=== PATIENT | female | born 1980 | race Caucasian/White ===

== ENCOUNTER → 2017-01-12 | Outpatient (CLI) | payer OTHER ==
[~2017-01-12] MED LIST: PRENTAB26 PO
== END | disposition home or self-care (01) ==
LOC: C.LAB 06:47
PROVIDERS: ATTEND Obstetrics & Gynecology
DX: N97.0 Female infertility associated with anovulation (principal); E55.9 Vitamin D deficiency, unspecified

== ENCOUNTER → 2017-06-18 | Outpatient (CLI) | payer OTHER | END | disposition home or self-care (01) | LOC: C.LAB 06:38 | PROVIDERS: ATTEND Specialist | DX: O09.00 Supervision of pregnancy with history of infertility, unspecified trimester (principal); Z3A.00 Weeks of gestation of pregnancy not specified ==

== ENCOUNTER → 2017-07-24 | Outpatient (CLI) | payer OTHER | END | disposition home or self-care (01) | LOC: C.LAB 09:31 | PROVIDERS: ATTEND Specialist | DX: O09.00 Supervision of pregnancy with history of infertility, unspecified trimester (principal); Z3A.00 Weeks of gestation of pregnancy not specified ==

== ENCOUNTER → 2017-07-26 | Outpatient (CLI) | payer OTHER ==
--- NOTE | 2017-07-26 15:23 | DIAGNOSTIC IMAGING REPORT ---
TRANSVAG-FEMALE PELVIS HISTORY: Infertility INFERTILIY STAT COMPARISON: Hysterosalpingogram 07/04/2016 FINDINGS: Uterus: 6.8 cm maximum dimension Endometrial stripe: 3 mm Right ovary: 3.0 cm maximum dimension with normal vascular flow. 5 small follicular cysts identified with the largest measuring 1.1 cm. Left ovary: 2.7 cm maximum dimension with normal vascular flow. 7 follicular cysts identified with the largest measuring 1.6 cm Miscellaneous:Trace physiologic free fluid IMPRESSION: 1. Bilateral ovarian follicular cysts as described. 2. Normal vascular flow to both ovaries. 3. Study is otherwise normal. The above report was generated using voice recognition software. It may contain grammatical, syntax or spelling errors. Electronically signed by: Nitin Suazo M.D. 07/26/2017 3:22 PM Dictated Date/Time: 07/26/2017 3:19 PM
== END | disposition home or self-care (01) ==
LOC: C.ULTR 13:48
PROVIDERS: ATTEND Specialist
DX: N97.9 Female infertility, unspecified (principal); N83.201 Unspecified ovarian cyst, right side; N83.202 Unspecified ovarian cyst, left side

== ENCOUNTER → 2017-07-27 | Outpatient (CLI) | payer OTHER | END | disposition home or self-care (01) | LOC: C.LAB 12:07 | PROVIDERS: ATTEND Specialist | DX: Z31.41 Encounter for fertility testing (principal) ==

== ENCOUNTER → 2017-09-14 | Outpatient (CLI) | payer OTHER | END | disposition home or self-care (01) | LOC: C.LAB 08:09 | PROVIDERS: ATTEND Specialist | DX: O09.00 Supervision of pregnancy with history of infertility, unspecified trimester (principal); Z3A.00 Weeks of gestation of pregnancy not specified ==

== ENCOUNTER → 2017-11-09 | Outpatient (CLI) | payer OTHER | LOC: C.LAB 06:45 | PROVIDERS: ATTEND Specialist | DX: O09.00 Supervision of pregnancy with history of infertility, unspecified trimester (principal); Z3A.00 Weeks of gestation of pregnancy not specified ==

== ENCOUNTER → 2017-11-12 | Outpatient (CLI) | payer OTHER | END | disposition home or self-care (01) | LOC: C.LAB 06:41 | PROVIDERS: ATTEND Specialist | DX: O09.00 Supervision of pregnancy with history of infertility, unspecified trimester (principal); Z3A.00 Weeks of gestation of pregnancy not specified ==

== ENCOUNTER → 2017-11-14 | Outpatient (CLI) | payer OTHER | END | disposition home or self-care (01) | LOC: C.LAB 07:00 | PROVIDERS: ATTEND Specialist | DX: O09.00 Supervision of pregnancy with history of infertility, unspecified trimester (principal) ==

== ENCOUNTER → 2017-11-16 | Outpatient (CLI) | payer OTHER | END | disposition home or self-care (01) | LOC: C.LAB 09:50 | PROVIDERS: ATTEND Specialist | DX: O09.00 Supervision of pregnancy with history of infertility, unspecified trimester (principal); Z3A.00 Weeks of gestation of pregnancy not specified ==

== ENCOUNTER → 2017-11-22 | Outpatient (CLI) | payer OTHER | END | disposition home or self-care (01) | LOC: C.LAB 09:00 | PROVIDERS: ATTEND Specialist | DX: O09.00 Supervision of pregnancy with history of infertility, unspecified trimester (principal) ==

== ENCOUNTER → 2017-11-30 | Outpatient (CLI) | payer OTHER | END | disposition home or self-care (01) | LOC: C.LAB 06:54 | PROVIDERS: ATTEND Specialist | DX: O09.00 Supervision of pregnancy with history of infertility, unspecified trimester (principal); Z3A.00 Weeks of gestation of pregnancy not specified ==

== ENCOUNTER → 2017-11-30 | Outpatient (CLI) | payer OTHER ==
[2017-12-01 06:23] LABS: HEMOGLOBIN A1C 5.1 % (4.5-5.6)
== END | disposition home or self-care (01) ==
LOC: C.LAB 14:45
PROVIDERS: ATTEND Specialist
DX: N96 Recurrent pregnancy loss (principal)

== ENCOUNTER 2019-03-14 07:39 | Inpatient (IN) ==
[2019-03-14] MEDS ORDERED: OXYTOCIN 30 UNITS/500 ML BAG IV PRN ×2 (08:15→08:20)
--- NOTE | 2019-03-14 08:31 | History & Physical Report ---
Date of Service March 14, 2019 Assessment & Plan (1) Encounter for induction of labor: IUP at 40 4/7 weeks for IOL because of post term begin pitocin augmentation of labor anticipate vaginal delivery. History of Present Illness Primary Care Provider: NO PCP Patient is a 38 yo white female EDC 03/10/19 who presents for continuation of labor induction for post dates . She had a cervical b alloon laced last evening & it fell out at 0630 this am accompanied by bloody show. No contractions at the moment although she had them off & on all night. This was an IVF . AMA, GBS (-) & blood type A negative. Allergies Allergy/AdvReac Type Severity Reaction Status Date / Time No Known Allergies Allergy Unknown Verified 03/13/19 20:12 Home Medications Home Medications Medication Instructions Recorded Confirmed Type 1 tab PO DAILY 02/21/19 03/14/19 History vitamin,calcium,plueosll-puny-htviz acid tablet Patient History Medical History Encounter for screening colonoscopy Fertility testing History of in vitro fertilization IVF unsuccesful 11/09/17 History of varicella resulting from in vitro fertilization current Surgical History Missed surgical treatment of MAB 2007 D&C S/P LEEP of cervix 2005 S/P cholecystectomy 2002 S/P wisdom tooth extraction 1999 Family History Father Hypertension Mother Hypertension Unknown No problems noted. Sister Down's syndrome Social History Preferred Language: Portuguese Communication Ability: Effective Beliefs That Will Affect Care: None marital status: Current Living Situation: Spouse Other Information That Helps Us Care for You: No Feels Safe at Home: Yes Safety Concerns: Feels Safe At This Time Smoking Status: Never smoker Hx Alcohol Use: No Hx Substance Use: No Review of Systems All systems reviewed & are unremarkable except as noted in HPI & below Physical Exam Constitutional: WD/WN, vitals as above Respiratory: normal respiratory effort, lungs clear to auscultation Cardiovascular: RRR, no murmur, no edema Extremities: no calf tenderness Gastrointestinal (Abdomen): normal bowel sounds, soft, nontender, no hepatosplenomegaly Psychiatric: A+Ox3, euthymic affect Genitourinary: Manual OB Exam: + cervical dilation 4 cm, + cervical effacement 80% and + station -1 OB Exam Monitor Tracing: + external FHT monitor used, + external uterine monitor used, + category I and + normal FHT variability Results & Data Vital Signs (Past 12 Hours) Vital Signs Temp Pulse Resp BP 03/14/19 07:57 97.5 F L 86 16 111/62 03/14/19 07:51 86 111/62 Code Status & VTE Plan VTE Prophylaxis Plan VTE Prophylaxis will be ordered: No
[2019-03-14 08:42] LABS: Hematocrit (blood only) 32.5 % (37-47); Hemoglobin 10.9 g/dL (12.0-16.0); Mean Corpuscular Hemoglobin 28.8 pg (25-34); Mean Platelet Volume 9.8 fL (7.4-10.4); Platelet Count 206 K/uL (130-400); RDW Coefficient of Variation 12.9 % (11.5-14.5); RDW Standard Deviation 40.1 fL (36.4-46.3); Red Blood Count 3.78 M/uL (4.2-5.4); White Blood Count 8.08 K/uL (4.8-10.8)
[2019-03-14 08:56] LABS: Mean Corpuscular Hgb Conc 33.5 g/dL (32-36)
[2019-03-14] MEDS: LACTATED RINGER'S 1,000 ML IV PRN ×3 (09:01→17:22)
[2019-03-14] MEDS ORDERED: CEFAZOLIN 2000MG 2,000 MG/15 ML SYR IV SCH (09:30)
[2019-03-14] MEDS ORDERED: BUPIVACAINE 0.25% 30 ML VIAL ONE (12:42)
[2019-03-14] MEDS ORDERED: fentaNYL citrate 100 MCG/2 ML VIAL ONE ×2 (12:43→19:45)
[2019-03-14] MEDS ORDERED: ePHEDrine sulfate 50 MG/ML AMP ONE ×2 (12:43→20:36)
[2019-03-14] MEDS ORDERED: fentaNYL 2MCG/ML ROPIV 1.25MG/ML 100 ML BAG EPI ONE (12:44)
--- NOTE | 2019-03-14 13:00 | Anesthesiology Consultation ---
Date of Service March 14, 2019 Assessment & Plan Chart Review Chart Review: Patient NOT seen in Pre Admission Testing and Acceptable Risk for Labor Epidural Consults Requested none ASA ASA2 Proposed Anesthesia Anesthesia Type: Labor Epidural Risk / Benefits Reviewed With: PT / POA / Parent / Guardian, Accepts Plan and Informed Consent Obtained History Height/Weight Height: 5 ft 4 in Weight: 73.936 kg Allergies Allergy/AdvReac Type Severity Reaction Status Date / Time No Known Allergies Allergy Unknown Verified 03/13/19 20:12 Medications Home Medications Medication Instructions Recorded Confirmed Last Taken 1 tab PO DAILY 02/21/19 03/14/19 03/13/19 06:00 vitamin,calcium,bxjvakjh-dkrv-wxedx acid tablet Active Medications Generic Name Dose Route Start Last Admin Trade Name Freq PRN Reason Stop Dose Admin Lactated Ringer's 1,000 mls @ 125 mls/hr 03/14/19 08:15 03/14/19 13:43 Lr IV 03/16/19 08:14 125 mls/hr .Q8H PRN Titration L&D Protocol Protocol Oxytocin 30 units in 500 mls @ 11 mls/hr 03/14/19 08:20 03/14/19 12:05 Pitocin IV 03/16/19 08:19 0.66 units/hr .Q24H PRN 11 mls/hr Labor Induction/Augmentation Titration Protocol 0.66 UNITS/HR NPO Date Last Intake of Fluids: 03/14/19 Time Last Intake of Fluids: 13:35 Date Last Intake of Solids: 03/14/19 Time Last Intake of Solids: 06:00 Past Medical History Medical History [place] teeth extracted Encounter for screening colonoscopy Fertility testing History of in vitro fertilization IVF unsuccesful 11/09/17 History of varicella resulting from in vitro fertilization current Exercise / Class Metabolic Activity II 4-5 Yardwork/Stairs/Walk up hill Past Family History Family History Father Hypertension Mother Hypertension Unknown No problems noted. Sister Down's syndrome Past Surgical History Surgical History Hx of cholecystectomy Missed surgical treatment of MAB 2007 D&C S/P LEEP of cervix 2005 S/P cholecystectomy 2002 S/P wisdom tooth extraction 1999 Past Anesthesia History No Hx of Anesthesia Complications History of PONV No Hx of PONV and No Hx of Motion Sickness Social History Smoking Status: Never smoker Hx Alcohol Use: No Hx Substance Use: No Review of Systems Negative for chest pain or shortness of breath. Patient denies active symptoms of GERD. Patient denies history of abnormal bleeding or bleeding disorder. Patient denies active use of anticoagulants other than low dose aspirin. Patient denies numbness, tingling or weakness in lower extremities. Physical Exam Vital Signs Last Vital Signs Temp 36.4 C L 03/14/19 10:48 Pulse 73 03/14/19 12:57 Resp 16 03/14/19 10:48 BP 108/76 03/14/19 12:03 Pulse Ox 84 L 03/14/19 12:57 Constitutional not obese (Gravid uterus) ENMT Mouth: no TMJ abnormality and oral opening not small Thyromental Distance: > or= 3.5 Finger Breadths Mallampati Class: II Neck normal visual inspection; neck extension not limited Respiratory normal respiratory effort Auscultation: lungs clear to auscultation bilaterally Cardiovascular Rate/Rhythm: regular rate and regular rhythm Heart Sounds: no murmur Neurologic moves all extremities Psychiatric Orientation: alert and oriented x 3 Testing Laboratory Results 03/14/19 08:29
[2019-03-14] MEDS ORDERED: NALOXONE HCL 1 MG in SODIUM CHLORIDE 0.9% 1000ML 1,000 ML IV PRN ×2 (13:49→21:30)
[2019-03-14] MEDS ORDERED: ONDANSETRON INJ 2 MG/ML 2 ML VIAL IV PRN ×3 (13:49→21:30)
[2019-03-14] MEDS ORDERED: DiphenhydrAMINE HCL 50 MG/ML VIAL IV PRN ×3 (13:49→21:30)
[2019-03-14] MEDS ORDERED: fentaNYL 2MCG/ML ROPIV 1.25MG/ML 100 ML BAG EPI PRN (13:49)
[2019-03-14] MEDS ORDERED: NALBUPHINE HCL INJ 10 MG/ML AMP IV PRN ×2 (13:49→21:30)
[2019-03-14] MEDS ORDERED: NALOXONE HCL 0.4 MG/1 ML VIAL/CARP IV PRN ×2 (13:49→21:30)
[2019-03-14] MEDS ORDERED: ePHEDrine sulfate 50 MG/ML AMP IV PRN ×2 (13:49→21:30)
--- NOTE | 2019-03-14 18:19 | Obstetrical Progress Note ---
Date of Service March 14, 2019 Subjective Cx still 4cm. Some moulding present. 90% effaced. IUPC placed. Discussed pace of cervical dilatation and lack of progress. FHR category 1 Results & Data Vital Signs (Past 12 Hours) Vital Signs Temp Pulse Resp BP Pulse Ox 03/14/19 18:17 77 99 03/14/19 18:12 72 100 03/14/19 18:10 70 122/70 03/14/19 18:07 69 100 03/14/19 18:02 75 100 03/14/19 17:57 88 100 03/14/19 17:56 87 119/75 86 L 03/14/19 17:52 77 99 03/14/19 17:47 80 96 03/14/19 17:42 88 99 03/14/19 17:41 110 H 126/83 03/14/19 17:37 83 99 03/14/19 17:32 89 99 03/14/19 17:27 77 99 03/14/19 17:25 75 122/59 L 03/14/19 17:22 75 99 03/14/19 17:20 78 88 L 03/14/19 17:17 71 100 03/14/19 17:12 90 74 L 03/14/19 17:10 66 108/64 03/14/19 17:07 73 99 03/14/19 17:05 84 89 L 03/14/19 17:02 72 100 03/14/19 16:57 77 100 03/14/19 16:56 68 114/63 03/14/19 16:52 70 100 03/14/19 16:47 70 100 03/14/19 16:42 65 100 03/14/19 16:41 67 117/67 03/14/19 16:37 70 100 03/14/19 16:32 74 98 03/14/19 16:27 70 100 03/14/19 16:25 66 115/59 L 03/14/19 16:24 83 89 L 03/14/19 16:22 75 100 03/14/19 16:17 84 96 03/14/19 16:12 77 99 03/14/19 16:10 77 94/52 L 03/14/19 16:07 80 100 03/14/19 16:02 76 95 03/14/19 15:57 68 98 03/14/19 15:55 65 104/50 L 03/14/19 15:52 68 98 03/14/19 15:47 72 98 03/14/19 15:42 73 97 03/14/19 15:40 70 106/51 L 03/14/19 15:37 91 H 96 03/14/19 15:32 74 98 03/14/19 15:27 82 99 03/14/19 15:25 69 102/60 03/14/19 15:22 68 99 03/14/19 15:17 70 100 03/14/19 15:12 80 100 03/14/19 15:11 79 107/72 03/14/19 15:07 74 99 03/14/19 15:02 70 99 03/14/19 14:57 65 98 03/14/19 14:55 65 114/60 03/14/19 14:52 80 97 03/14/19 14:47 68 100 03/14/19 14:42 77 99 03/14/19 14:41 72 113/57 L 03/14/19 14:38 87 86 L 03/14/19 14:37 87 99 03/14/19 14:32 68 100 03/14/19 14:27 67 99 03/14/19 14:26 64 99/51 L 03/14/19 14:22 74 100 03/14/19 14:17 71 99 03/14/19 14:12 72 18 97/52 L 99 03/14/19 14:07 68 100 03/14/19 14:02 71 100 03/14/19 13:57 70 100 03/14/19 13:54 70 104/52 L 03/14/19 13:52 86 102/53 L 100 03/14/19 13:51 78 89 L 03/14/19 13:50 68 18 102/56 L 03/14/19 13:48 71 100/55 L 03/14/19 13:47 71 100 03/14/19 13:46 67 99/55 L 03/14/19 13:44 97.9 F 69 18 98/55 L 03/14/19 13:42 75 100 03/14/19 13:41 79 131/53 L 03/14/19 13:38 93 H 18 106/57 L 03/14/19 13:37 93 H 100 03/14/19 13:36 81 105/55 L 03/14/19 13:34 82 16 107/58 L 03/14/19 13:32 80 16 103/56 L 100 03/14/19 13:30 89 103/59 L 03/14/19 13:28 78 16 101/52 L 03/14/19 13:27 74 100 03/14/19 13:26 76 102/55 L 03/14/19 13:25 73 16 103/51 L 03/14/19 13:22 84 100 03/14/19 13:20 74 132/76 03/14/19 13:18 78 127/62 03/14/19 13:17 77 100 03/14/19 13:16 73 126/58 L 03/14/19 13:12 78 100 03/14/19 13:07 77 100 03/14/19 13:03 84 93 03/14/19 13:02 80 100 03/14/19 12:59 78 18 113/68 03/14/19 12:57 73 99 03/14/19 12:03 87 108/76 03/14/19 10:49 78 110/55 L 03/14/19 10:48 97.5 F L 16 03/14/19 10:05 81 16 109/60 03/14/19 09:04 76 16 125/59 L 03/14/19 07:57 97.5 F L 86 16 111/62 03/14/19 07:51 86 111/62 PG Care Time/CCT Total # of Minutes Spent Total Time Spent with Patient: Total time spent is greater than 50% in coordination of care (as documented) at patient's floor/unit and/or counseling patient:
--- NOTE | 2019-03-14 18:41 | Obstetrical Progress Note ---
Date of Service March 14, 2019 Subjective MVU at 225 or greater with IUPC Results & Data Vital Signs (Past 12 Hours) Vital Signs Temp Pulse Resp BP Pulse Ox 03/14/19 18:39 70 105/57 L 03/14/19 18:37 74 100 03/14/19 18:32 74 100 03/14/19 18:27 74 99 03/14/19 18:25 97.7 F 83 18 101/54 L 03/14/19 18:22 78 100 03/14/19 18:17 77 99 03/14/19 18:12 72 100 03/14/19 18:10 70 122/70 03/14/19 18:07 69 100 03/14/19 18:02 75 18 100 03/14/19 17:57 88 100 03/14/19 17:56 87 119/75 86 L 03/14/19 17:52 77 99 03/14/19 17:47 80 96 03/14/19 17:42 88 99 03/14/19 17:41 110 H 126/83 03/14/19 17:37 83 99 03/14/19 17:32 89 99 03/14/19 17:31 18 03/14/19 17:27 77 99 03/14/19 17:25 75 122/59 L 03/14/19 17:22 75 99 03/14/19 17:20 78 88 L 03/14/19 17:17 71 100 03/14/19 17:12 90 74 L 03/14/19 17:10 66 108/64 03/14/19 17:07 73 99 03/14/19 17:05 84 89 L 03/14/19 17:02 72 100 03/14/19 17:01 18 03/14/19 16:57 77 100 03/14/19 16:56 68 114/63 03/14/19 16:52 70 100 03/14/19 16:47 70 100 03/14/19 16:42 65 100 03/14/19 16:41 67 117/67 03/14/19 16:37 70 100 03/14/19 16:32 74 18 98 03/14/19 16:27 70 100 03/14/19 16:25 66 115/59 L 03/14/19 16:24 83 89 L 03/14/19 16:22 75 100 03/14/19 16:17 84 96 03/14/19 16:12 77 99 03/14/19 16:10 77 94/52 L 03/14/19 16:07 80 100 03/14/19 16:02 76 95 03/14/19 16:01 18 03/14/19 15:57 68 98 03/14/19 15:55 65 104/50 L 03/14/19 15:52 68 98 03/14/19 15:47 72 98 03/14/19 15:42 73 97 03/14/19 15:40 70 106/51 L 03/14/19 15:37 91 H 96 03/14/19 15:32 74 98 03/14/19 15:27 82 99 03/14/19 15:25 69 102/60 03/14/19 15:22 68 99 03/14/19 15:17 70 100 03/14/19 15:12 80 100 03/14/19 15:11 79 107/72 03/14/19 15:07 74 99 03/14/19 15:02 70 99 03/14/19 14:57 65 98 03/14/19 14:55 65 114/60 03/14/19 14:52 80 97 03/14/19 14:47 68 100 03/14/19 14:42 77 99 03/14/19 14:41 72 113/57 L 03/14/19 14:38 87 86 L 03/14/19 14:37 87 99 03/14/19 14:32 68 100 03/14/19 14:27 67 99 03/14/19 14:26 64 99/51 L 03/14/19 14:22 74 100 03/14/19 14:17 71 99 03/14/19 14:12 72 18 97/52 L 99 03/14/19 14:07 68 100 03/14/19 14:02 71 100 03/14/19 13:57 70 100 03/14/19 13:54 70 104/52 L 03/14/19 13:52 86 102/53 L 100 03/14/19 13:51 78 89 L 03/14/19 13:50 68 18 102/56 L 03/14/19 13:48 71 100/55 L 03/14/19 13:47 71 100 03/14/19 13:46 67 99/55 L 03/14/19 13:44 97.9 F 69 18 98/55 L 03/14/19 13:42 75 100 03/14/19 13:41 79 131/53 L 03/14/19 13:38 93 H 18 106/57 L 03/14/19 13:37 93 H 100 03/14/19 13:36 81 105/55 L 03/14/19 13:34 82 16 107/58 L 03/14/19 13:32 80 16 103/56 L 100 03/14/19 13:30 89 103/59 L 03/14/19 13:28 78 16 101/52 L 03/14/19 13:27 74 100 03/14/19 13:26 76 102/55 L 03/14/19 13:25 73 16 103/51 L 03/14/19 13:22 84 100 03/14/19 13:20 74 132/76 03/14/19 13:18 78 127/62 03/14/19 13:17 77 100 03/14/19 13:16 73 126/58 L 03/14/19 13:12 78 100 03/14/19 13:07 77 100 03/14/19 13:03 84 93 03/14/19 13:02 80 100 03/14/19 12:59 78 18 113/68 03/14/19 12:57 73 99 03/14/19 12:03 87 108/76 03/14/19 10:49 78 110/55 L 03/14/19 10:48 97.5 F L 16 03/14/19 10:05 81 16 109/60 03/14/19 09:04 76 16 125/59 L 03/14/19 07:57 97.5 F L 86 16 111/62 03/14/19 07:51 86 111/62 PG Care Time/CCT Total # of Minutes Spent Total Time Spent with Patient: Total time spent is greater than 50% in coordination of care (as documented) at patient's floor/unit and/or counseling patient:
--- NOTE | 2019-03-14 19:24 | History & Physical Report ---
Date of Service March 14, 2019 Prolonged decel with aderquate MVU and no change in dilatation over 12 hours Recommend C/S Assessment & Plan (1) Non-reassuring electronic monitoring tracing: Recommend Section. Offered to continue labor section. The patient was counseled to the nature of the procedure including alternatives such as labor. Risks were discussed including bleeding infection injury to bowel bladder ureter vessels and even baby. Deep Vein thrombosis, pulmonary embolus discussed. Breakdown of incision reviewed. Deep vein thrombosis pulmonary embolus hernia and failure of the incision to heal were discussed Patient verbalized understanding of this and was given ample time to ask questions History of Present Illness Primary Care Provider: NO PCP IVF Allergies Allergy/AdvReac Type Severity Reaction Status Date / Time No Known Allergies Allergy Unknown Verified 03/13/19 20:12 Home Medications Home Medications Medication Instructions Recorded Confirmed Type 1 tab PO DAILY 02/21/19 03/14/19 History vitamin,calcium,nrbepoht-venr-yprdg acid tablet Patient History Medical History [place] teeth extracted Encounter for screening colonoscopy Fertility testing History of in vitro fertilization IVF unsuccesful 11/09/17 History of varicella resulting from in vitro fertilization current Surgical History Hx of cholecystectomy Missed surgical treatment of MAB 2006 D&C S/P LEEP of cervix 2005 S/P cholecystectomy 2002 S/P wisdom tooth extraction 1999 Family History Father Hypertension Mother Hypertension Unknown No problems noted. Sister Down's syndrome Social History Preferred Language: Pashto Communication Ability: Effective Beliefs That Will Affect Care: None marital status: Current Living Situation: Spouse Other Information That Helps Us Care for You: No Feels Safe at Home: Yes Safety Concerns: Feels Safe At This Time Smoking Status: Never smoker Hx Alcohol Use: No Hx Substance Use: No Physical Exam Constitutional: WD/WN, vitals as above Respiratory: normal respiratory effort, lungs clear to auscultation Cardiovascular: RRR, no murmur, no edema Genitourinary: Manual OB Exam: + cervical dilation 4 cm, + cervical effacement 90% and + station -2 OB Exam Monitor Tracing: + scalp electrode used and + category II Results & Data Vital Signs (Past 12 Hours) Vital Signs Temp Pulse Resp BP Pulse Ox 03/14/19 19:17 84 100 03/14/19 19:12 105 H 100 03/14/19 19:09 89 105/55 L 03/14/19 19:07 92 H 99 03/14/19 19:02 74 99 03/14/19 18:57 90 98 03/14/19 18:56 76 105/52 L 03/14/19 18:52 77 97 03/14/19 18:47 81 97 03/14/19 18:42 78 99 03/14/19 18:39 70 105/57 L 03/14/19 18:37 74 100 03/14/19 18:32 74 100 03/14/19 18:27 74 99 03/14/19 18:25 97.7 F 83 18 101/54 L 03/14/19 18:22 78 100 03/14/19 18:17 77 99 03/14/19 18:12 72 100 03/14/19 18:10 70 122/70 03/14/19 18:07 69 100 03/14/19 18:02 75 18 100 03/14/19 17:57 88 100 03/14/19 17:56 87 119/75 86 L 03/14/19 17:52 77 99 03/14/19 17:47 80 96 03/14/19 17:42 88 99 03/14/19 17:41 110 H 126/83 03/14/19 17:37 83 99 03/14/19 17:32 89 99 03/14/19 17:31 18 03/14/19 17:27 77 99 03/14/19 17:25 75 122/59 L 03/14/19 17:22 75 99 03/14/19 17:20 78 88 L 03/14/19 17:17 71 100 03/14/19 17:12 90 74 L 03/14/19 17:10 66 108/64 03/14/19 17:07 73 99 03/14/19 17:05 84 89 L 03/14/19 17:02 72 100 03/14/19 17:01 18 03/14/19 16:57 77 100 03/14/19 16:56 68 114/63 03/14/19 16:52 70 100 03/14/19 16:47 70 100 03/14/19 16:42 65 100 03/14/19 16:41 67 117/67 03/14/19 16:37 70 100 03/14/19 16:32 74 18 98 03/14/19 16:27 70 100 03/14/19 16:25 66 115/59 L 03/14/19 16:24 83 89 L 03/14/19 16:22 75 100 03/14/19 16:17 84 96 03/14/19 16:15 97.9 F 18 03/14/19 16:12 77 99 03/14/19 16:10 77 94/52 L 03/14/19 16:07 80 100 03/14/19 16:02 76 95 03/14/19 16:01 18 03/14/19 15:57 68 98 03/14/19 15:55 65 104/50 L 03/14/19 15:52 68 98 03/14/19 15:47 72 98 03/14/19 15:42 73 97 03/14/19 15:40 70 106/51 L 03/14/19 15:37 91 H 96 03/14/19 15:32 74 98 03/14/19 15:27 82 99 03/14/19 15:25 69 102/60 03/14/19 15:22 68 99 03/14/19 15:17 70 100 03/14/19 15:12 80 100 03/14/19 15:11 79 107/72 03/14/19 15:07 74 99 03/14/19 15:02 70 99 03/14/19 14:57 65 98 03/14/19 14:55 65 114/60 03/14/19 14:52 80 97 03/14/19 14:47 68 100 03/14/19 14:42 77 99 03/14/19 14:41 72 113/57 L 03/14/19 14:38 87 86 L 03/14/19 14:37 87 99 03/14/19 14:32 68 100 03/14/19 14:27 67 99 03/14/19 14:26 64 99/51 L 03/14/19 14:22 74 100 03/14/19 14:17 71 99 03/14/19 14:12 72 18 97/52 L 99 03/14/19 14:07 68 100 03/14/19 14:02 71 100 03/14/19 13:57 70 100 03/14/19 13:54 70 104/52 L 03/14/19 13:52 86 102/53 L 100 03/14/19 13:51 78 89 L 03/14/19 13:50 68 18 102/56 L 03/14/19 13:48 71 100/55 L 03/14/19 13:47 71 100 03/14/19 13:46 67 99/55 L 03/14/19 13:44 97.9 F 69 18 98/55 L 03/14/19 13:42 75 100 03/14/19 13:41 79 131/53 L 03/14/19 13:38 93 H 18 106/57 L 03/14/19 13:37 93 H 100 03/14/19 13:36 81 105/55 L 03/14/19 13:34 82 16 107/58 L 03/14/19 13:32 80 16 103/56 L 100 03/14/19 13:30 89 103/59 L 03/14/19 13:28 78 16 101/52 L 03/14/19 13:27 74 100 03/14/19 13:26 76 102/55 L 03/14/19 13:25 73 16 103/51 L 03/14/19 13:22 84 100 03/14/19 13:20 74 132/76 03/14/19 13:18 78 127/62 03/14/19 13:17 77 100 03/14/19 13:16 73 126/58 L 03/14/19 13:12 78 100 03/14/19 13:07 77 100 03/14/19 13:03 84 93 03/14/19 13:02 80 100 03/14/19 12:59 78 18 113/68 03/14/19 12:57 73 99 03/14/19 12:03 87 108/76 03/14/19 10:49 78 110/55 L 03/14/19 10:48 97.5 F L 16 03/14/19 10:05 81 16 109/60 08/23/19 09:04 76 16 125/59 L 03/14/19 07:57 97.5 F L 86 16 111/62 03/14/19 07:51 86 111/62 Code Status & VTE Plan VTE Prophylaxis Plan VTE Prophylaxis will be ordered: No
[2019-03-14] MEDS ORDERED: CITRIC ACID/SODIUM CITRATE 15 ML UDC PO SCH (19:30)
[2019-03-14] MEDS ORDERED: LIDOCAINE/EPINEPHRINE 2% 1:200,000 20 ML SDV ONE (19:42)
[2019-03-14] MEDS ORDERED: OXYTOCIN 10 UNITS/ML VIAL ONE (19:43)
[2019-03-14] MEDS ORDERED: PHENYLEPHRINE HCL 10 MG/ML VIAL ONE (19:49)
[2019-03-14] MEDS ORDERED: MIDAZOLAM HCL 1 MG/ML 2ML VIAL ONE (21:00)
[2019-03-14] MEDS ORDERED: ONDANSETRON INJ 2 MG/ML 2 ML VIAL ONE (21:01)
[2019-03-14] MEDS ORDERED: DEXAMETHASONE SOD INJ 4 MG/ML VIAL ONE (21:03)
[2019-03-14] MEDS ORDERED: MoRPHine SULFATE PF 1 MG/ML 10 ML AMP/VIAL ONE (21:05)
[2019-03-14] MEDS ORDERED: SUPERCREAM 0.870% 15 GM JAR EXT PRN ×2 (21:21→21:50)
[2019-03-14] MEDS ORDERED: PROMETHAZINE HCL 25 MG in SODIUM CHLORIDE 0.9% 50 ML IV PRN ×2 (21:21→21:30)
[2019-03-14] MEDS ORDERED: SENNA 8.6 MG TAB PO PRN ×2 (21:21→21:50)
[2019-03-14] MEDS ORDERED: HYDROCORTISONE ACETATE 25 MG SUPP PR PRN ×2 (21:21→21:50)
[2019-03-14] MEDS ORDERED: KETOROLAC 30 MG/ML VIAL IV PRN (21:21)
[2019-03-14] MEDS ORDERED: BENZOCAINE 20% AER SPR 82.5 GM CAN EXT PRN ×2 (21:21→21:50)
[2019-03-14] MEDS ORDERED: DIPHTHERIA/TETANUS/PERTUSSIS 0.5 ML SYR/VIAL IM ONE (21:21)
[2019-03-14] MEDS ORDERED: IBUPROFEN 600 MG TAB PO PRN (21:21)
[2019-03-14] MEDS ORDERED: MAGNESIUM HYDROXIDE SUSP 30 ML UDC PO PRN ×2 (21:21→21:50)
--- NOTE | 2019-03-14 21:25 | Operative Report ---
Post Operative Report Pre & Post Diagnosis Operation Date: 03/14/19 19:35 Pre-Op Diagnosis: Primary Section for failure to progress and nonreassuring heart rate Post-Op Diagnosis: Primary Section for failure to progress and nonreassuring heart rate Procedure Operation Date: 03/14/19 19:35 <No data on this case meets the specified criteria> Surgeon Naila Wells MD, FACOG Algorithm Developer none Estimated Blood Loss 600 Findings Consistent with Post-Op Diagnosis Specimens cord gases, cord blood Description of Procedure Patient given a increase in epidural anesthetic Garcia catheter placed by nursing placed in the supine position with a leftward tilt skin area test with pickups with teeth and found to be adequate for incision scalpel used to make a Pfannenstiel incision cutting down through subtenons fat to the fascia in the midline fascia cut laterally with the curved Swift scissors rectus muscle split peritoneal cavity entered in a superior location opening enlarged to allow exposure bladder retractor placed Metzenbaums used to dissect away the bladder flap scalpel used to make a low transverse incision on the uterus and she was done bluntly with the burning plant operator's finger opening into the uterine incision expanded with the burning plant operator's fingers membranes ruptured fluid clear baby was delivered by flexion of the baby's head and pressure by the food trades assistants no nuchal cord but there was a body cord baby was delivered a live vigorous female infant cord clamped and cut cord gases obtained cord blood obtained placenta removed IV Pitocin started we ensured all placenta was removed uterus closed in the usual fashion running 0 Monocryl locked a second 0 Monocryl not locked uterine tone was excellent at this stage after irrigation suction of the cul-de-sac and bladder flap areas the uterus was placed back in the peritoneal cavity and reexamined hemostasis was excellent fascia closed with 0 Vicryl subtenons fat irrigated and closed with 2-0 Vicryl skin closed with 4-0 subcuticular Monocryl and Steri-Strips applied the patient did have approximate 100 mL of bleeding at the end of the procedure I attest to the content of the Intraoperative Record and any orders documented therein. Any exceptions are noted below.
[2019-03-14] MEDS ORDERED: NALOXONE HCL 0.08 MG in SYRINGE 1.8 ML IV PRN (21:30)
[2019-03-14] MEDS ORDERED: LACTATED RINGER'S 500 ML IV PRN (21:30)
[2019-03-14] MEDS ORDERED: OXYTOCIN 20 UNITS in LACTATED RINGER'S 1,000 ML IV SCH (21:30)
[2019-03-14] MEDS ORDERED: SODIUM CHLORIDE 0.9% 1000ML 1,000 ML IV SCH (21:30)
[2019-03-14] MEDS ORDERED: NO NARCOTICS OR SEDATIVES SCH (21:30)
[2019-03-14] MEDS ORDERED: DC INTRASPINAL MORPHINE SCH (21:30)
[2019-03-14] MEDS ORDERED: LACTATED RINGER'S 1,000 ML IV SCH ×2 (21:30→21:50)
[2019-03-14] MEDS ORDERED: MoRPHine SULFATE PF 1 MG/ML 10 ML AMP/VIAL INT SPINAL ONE (21:30)
--- NOTE | 2019-03-14 21:43 | Anesthesiology Progress Note ---
Date of Service March 14, 2019 Anesthesia Post Procedure Vital Signs Vital Signs: Temp Pulse Resp BP Pulse Ox 03/14/19 21:40 75 109/53 L 03/14/19 21:39 77 89 L 03/14/19 21:37 78 105/73 100 03/14/19 20:12 98 H 100 03/14/19 20:09 105 H 144/64 H 03/14/19 20:07 99 H 100 03/14/19 20:04 107 H 131/60 03/14/19 20:02 103 H 99 03/14/19 19:57 105 H 100 03/14/19 19:55 103 H 130/70 03/14/19 19:52 99 H 100 03/14/19 19:47 89 100 03/14/19 19:42 90 100 03/14/19 19:41 83 118/56 L 03/14/19 19:37 83 100 03/14/19 19:35 93 H 85 L 03/14/19 19:32 112 H 100 03/14/19 19:27 87 100 03/14/19 19:26 76 129/71 03/14/19 19:22 86 100 03/14/19 19:17 84 100 03/14/19 19:12 105 H 100 03/14/19 19:09 89 105/55 L 03/14/19 19:07 92 H 99 03/14/19 19:02 74 99 03/14/19 18:57 90 98 03/14/19 18:56 76 105/52 L 03/14/19 18:52 77 97 03/14/19 18:47 81 97 03/14/19 18:42 78 99 03/14/19 18:39 70 105/57 L 03/14/19 18:37 74 100 03/14/19 18:32 74 100 03/14/19 18:27 74 99 03/14/19 18:25 36.5 C 83 18 101/54 L 03/14/19 18:22 78 100 03/14/19 18:17 77 99 03/14/19 18:12 72 100 03/14/19 18:10 70 122/70 03/14/19 18:07 69 100 03/14/19 18:02 75 18 100 03/14/19 17:57 88 100 03/14/19 17:56 87 119/75 86 L 03/14/19 17:52 77 99 03/14/19 17:47 80 96 03/14/19 17:42 88 99 03/14/19 17:41 110 H 126/83 03/14/19 17:37 83 99 03/14/19 17:32 89 99 03/14/19 17:31 18 03/14/19 17:27 77 99 03/14/19 17:25 75 122/59 L 03/14/19 17:22 75 99 03/14/19 17:20 78 88 L 03/14/19 17:17 71 100 03/14/19 17:12 90 74 L 03/14/19 17:10 66 108/64 03/14/19 17:07 73 99 03/14/19 17:05 84 89 L 03/14/19 17:02 72 100 03/14/19 17:01 18 03/14/19 16:57 77 100 03/14/19 16:56 68 114/63 03/14/19 16:52 70 100 03/14/19 16:47 70 100 03/14/19 16:42 65 100 03/14/19 16:41 67 117/67 03/14/19 16:37 70 100 03/14/19 16:32 74 18 98 03/14/19 16:27 70 100 03/14/19 16:25 66 115/59 L 03/14/19 16:24 83 89 L 03/14/19 16:22 75 100 03/14/19 16:17 84 96 03/14/19 16:15 36.6 C 18 03/14/19 16:12 77 99 03/14/19 16:10 77 94/52 L 03/14/19 16:07 80 100 03/14/19 16:02 76 95 03/14/19 16:01 18 03/14/19 15:57 68 98 03/14/19 15:55 65 104/50 L 03/14/19 15:52 68 98 03/14/19 15:47 72 98 03/14/19 15:42 73 97 03/14/19 15:40 70 106/51 L 03/14/19 15:37 91 H 96 03/14/19 15:32 74 98 03/14/19 15:27 82 99 03/14/19 15:25 69 102/60 03/14/19 15:22 68 99 03/14/19 15:17 70 100 03/14/19 15:12 80 100 03/14/19 15:11 79 107/72 03/14/19 15:07 74 99 03/14/19 15:02 70 99 03/14/19 14:57 65 98 03/14/19 14:55 65 114/60 03/14/19 14:52 80 97 03/14/19 14:47 68 100 03/14/19 14:42 77 99 03/14/19 14:41 72 113/57 L 03/14/19 14:38 87 86 L 03/14/19 14:37 87 99 03/14/19 14:32 68 100 03/14/19 14:27 67 99 03/14/19 14:26 64 99/51 L 03/14/19 14:22 74 100 03/14/19 14:17 71 99 03/14/19 14:12 72 18 97/52 L 99 03/14/19 14:07 68 100 03/14/19 14:02 71 100 03/14/19 13:57 70 100 03/14/19 13:54 70 104/52 L 03/14/19 13:52 86 102/53 L 100 03/14/19 13:51 78 89 L 03/14/19 13:50 68 18 102/56 L 03/14/19 13:48 71 100/55 L 03/14/19 13:47 71 100 03/14/19 13:46 67 99/55 L 03/14/19 13:44 36.6 C 69 18 98/55 L 03/14/19 13:42 75 100 03/14/19 13:41 79 131/53 L 03/14/19 13:38 93 H 18 106/57 L 03/14/19 13:37 93 H 100 03/14/19 13:36 81 105/55 L 03/14/19 13:34 82 16 107/58 L 03/14/19 13:32 80 16 103/56 L 100 03/14/19 13:30 89 103/59 L 03/14/19 13:28 78 16 101/52 L 03/14/19 13:27 74 100 03/14/19 13:26 76 102/55 L 03/14/19 13:25 73 16 103/51 L 03/14/19 13:22 84 100 03/14/19 13:20 74 132/76 03/14/19 13:18 78 127/62 03/14/19 13:17 77 100 03/14/19 13:16 73 126/58 L 03/14/19 13:12 78 100 03/14/19 13:07 77 100 03/14/19 13:03 84 93 03/14/19 13:02 80 100 03/14/19 12:59 78 18 113/68 03/14/19 12:57 73 99 03/14/19 12:03 87 108/76 03/14/19 10:49 78 110/55 L 03/14/19 10:48 36.4 C L 16 03/14/19 10:05 81 16 109/60 03/14/19 09:04 76 16 125/59 L 03/14/19 07:57 36.4 C L 86 16 111/62 03/14/19 07:51 86 111/62 Transfer of Care Handoff Completed per policy Notes Mental Status: alert / awake / arousable Patient Amnestic to Procedure: Yes Nausea / Vomiting: adequately controlled Pain: adequately controlled Airway Patency, RR, SpO2: stable & adequate BP & HR: stable & adequate Hydration State: stable & adequate Neuraxial Anesthesia: was administered and sensory block is resolving Anesthetic Complications: no major complications apparent
[2019-03-14] MEDS ORDERED: KETOROLAC 30 MG/ML VIAL ONE (21:47)
[2019-03-14] MEDS: KETOROLAC 30 MG/ML VIAL IV PRN (21:49)
[2019-03-14] MEDS ORDERED: OXYCODONE/ACETAMINOPHEN 5mg/325mg TAB PO PRN (21:50)
[2019-03-14] MEDS ORDERED: MEPERIDINE HCL 50 MG/ML CARP IV PRN (21:50)
[2019-03-14 21:59] LABS: Base Excess Cord Venous Blood -5.1 mEq/L (-7.7-1.9); Cord Venous Blood HCO3 21 mmol/L (18.4-26.8); Cord Venous Blood PCO2 40 mmHg (30.4-57.2); Cord Venous Blood PO2 32 mmHg (14.1-43.3); Cord Venous Blood pH 7.33 (7.20-7.44)
[2019-03-14] MEDS: OXYTOCIN 20 UNITS in LACTATED RINGER'S 1,000 ML IV SCH (22:56)
[2019-03-15] MEDS: KETOROLAC 30 MG/ML VIAL IV PRN ×3 (05:27→19:38)
[2019-03-15 06:26] LABS: Hematocrit (blood only) 27.8 % (37-47); Hemoglobin 9.4 g/dL (12.0-16.0); Immature Granulocytes # (auto) 0.07 K/uL (0.00-0.02); Immature Granulocytes % (auto) 0.4 %; Lymphocytes # (auto) 1.06 K/uL (1.2-3.4); Lymphocytes % (auto) 6.3 %; Mean Corpuscular Hemoglobin 29.2 pg (25-34); Mean Corpuscular Hgb Conc 33.8 g/dL (32-36); Mean Corpuscular Volume 86.3 fL (80-100); Mean Platelet Volume 9.8 fL (7.4-10.4); Monocytes # (auto) 0.95 K/uL (0.11-0.59); Monocytes % (auto) 5.6 %; Neutrophils # (auto) 14.75 K/uL (1.4-6.5); Neutrophils % (auto) 87.7 %; Platelet Count 186 K/uL (130-400); RDW Coefficient of Variation 12.9 % (11.5-14.5); RDW Standard Deviation 40.9 fL (36.4-46.3); Red Blood Count 3.22 M/uL (4.2-5.4); White Blood Count 16.83 K/uL (4.8-10.8)
--- NOTE | 2019-03-15 07:03 | Obstetrical Progress Note ---
Date of Service <Peg Scott MD - Last Filed: 03/15/19 07:03> March 15, 2019 Assessment & Plan <Peg Scott MD - Last Filed: 03/15/19 07:03> (1) Status post : Ninoska is a 38 yo on POD 1 after emergency C/s due to non-reassuring heart tones. - GBS -, Blood Type A-, Rubella immune -Baby's blood type A+; will order Rhogam -Vitals reviewed and WNL -patient is doing clinically well Machuca will remain in place until this evening, after which we will encourage ambulation; progress diet as tolerated, provide analgesia as needed, monitor lochia - After discharge will have [address] Wells. Subjective <Peg Scott MD - Last Filed: 03/15/19 07:03> Ambulation: limited ambulation Voiding: machuca catheter in place Passing Gas:: Yes Diet Tolerance:: clear liquids Lochia:: Small Feeding Type:: breast feeding Current Pain Level(1-10): 2 patient examined at bedside Constitutional: no fever, no chills and no sweats Respiratory: no cough and no dyspnea Cardiovascular: no chest pain and no palpitations Breast: no breast pain Gastrointestinal: no nausea and no vomiting Genitourinary (female): no dysuria and no urinary frequency Neurologic: no headache(s) Physical Exam <Peg Scott MD - Last Filed: 03/15/19 07:03> Constitutional WD/WN, vitals as above no acute distress Respiratory normal respiratory effort, lungs clear to auscultation does not use accessory muscles Auscultation: no crackles, no rhonchi, no wheezes and no pleural rub Cardiovascular Rate/Rhythm: regular rate and regular rhythm Heart Sounds: normal S1 and normal S2; no gallop, no murmur and no cardiac rub Extremities: no calf tenderness and no pedal edema Gastrointestinal (Abdomen) Inspection/Auscultation: normal bowel sounds; abdomen not distended Percussion/Palpation: abdomen soft surgical incision: bandage in place; dry, no warmth; appropriate post- op tenderness Genitourinary Uterus: fundus firm, palpable 1 cm below the umbilicus Results & Data <Peg Scott MD - Last Filed: 03/15/19 07:03> Vital Signs (Past 12 Hours) Vital Signs Temp Pulse Resp BP Pulse Ox 03/15/19 06:10 18 97 03/15/19 05:10 18 99 03/15/19 04:10 36.3 C L 60 18 101/52 L 99 03/15/19 03:10 18 99 03/15/19 02:10 18 98 03/15/19 01:10 36.5 C 57 L 18 113/60 100 03/15/19 00:10 36.6 C 63 18 110/53 L 96 03/14/19 23:52 79 97 03/14/19 23:47 83 96 03/14/19 23:42 81 96 03/14/19 23:41 88 117/56 L 03/14/19 23:37 82 95 03/14/19 23:34 36.4 C L 18 03/14/19 23:32 83 96 03/14/19 23:30 86 128/65 03/14/19 23:27 83 96 03/14/19 23:25 104 H 94 03/14/19 23:22 86 95 03/14/19 23:21 90 122/70 03/14/19 23:17 92 H 96 03/14/19 23:12 90 97 03/14/19 23:10 83 126/61 03/14/19 23:08 100 H 93 03/14/19 23:07 91 H 96 03/14/19 23:04 37.3 C 18 03/14/19 23:02 81 97 03/14/19 23:00 82 117/59 L 03/14/19 22:57 86 96 03/14/19 22:52 84 96 03/14/19 22:50 85 114/58 L 03/14/19 22:47 88 96 03/14/19 22:42 80 96 03/14/19 22:40 87 123/60 03/14/19 22:37 90 97 03/14/19 22:36 102 H 92 03/14/19 22:34 37.3 C 18 03/14/19 22:32 90 99 03/14/19 22:31 83 136/63 03/14/19 22:27 84 98 03/14/19 22:24 18 03/14/19 22:22 84 99 08/23/19 22:20 87 117/58 L 03/14/19 22:17 93 H 98 03/14/19 22:14 18 03/14/19 22:12 103 H 96 03/14/19 22:11 94 H 108/54 L 03/14/19 22:07 85 99 03/14/19 22:04 18 03/14/19 22:02 101 H 97 03/14/19 22:01 100 H 91 03/14/19 22:00 100 H 114/60 03/14/19 21:57 91 H 98 03/14/19 21:54 18 03/14/19 21:52 87 98 03/14/19 21:50 95 H 110/58 L 03/14/19 21:47 100 H 98 03/14/19 21:44 18 03/14/19 21:42 81 98 03/14/19 21:40 75 109/53 L 03/14/19 21:39 77 89 L 03/14/19 21:37 78 105/73 100 03/14/19 21:34 37.3 C 21 03/14/19 20:12 98 H 100 03/14/19 20:09 105 H 144/64 H 03/14/19 20:07 99 H 100 03/14/19 20:04 107 H 131/60 03/14/19 20:02 103 H 99 03/14/19 19:57 105 H 100 03/14/19 19:55 103 H 130/70 03/14/19 19:52 99 H 100 03/14/19 19:47 89 100 03/14/19 19:42 90 100 03/14/19 19:41 83 118/56 L 03/14/19 19:37 83 100 03/14/19 19:35 93 H 85 L 03/14/19 19:32 112 H 100 03/14/19 19:27 87 100 03/14/19 19:26 76 129/71 03/14/19 19:22 86 100 03/14/19 19:17 84 100 03/14/19 19:12 105 H 100 03/14/19 19:09 89 105/55 L 03/14/19 19:07 92 H 99 03/14/19 19:02 74 99 <Naila Wells MD, FACOG - Last Filed: 03/15/19 07:16> Co-Signing Physician Notes Resident Physician Supervision Note: I interviewed and examined the patient. Discussed with Dr. Scott and agree with findings and plan as documented in the note. Any exceptions or clarifications are listed here: [None] Documented By: Naila Wells MD, FACOG
[2019-03-15] MEDS: OXYTOCIN 20 UNITS in LACTATED RINGER'S 1,000 ML IV SCH ×2 (07:28→16:01)
[2019-03-15] MEDS ORDERED: SIMETHICONE 80 MG CHEW PO SCH (08:00)
[2019-03-15] MEDS ORDERED: DOCUSATE SODIUM 100 MG CAP PO SCH (08:00)
[2019-03-15] MEDS ORDERED: PRENATAL VITAMIN 1 TAB PO SCH (08:00)
--- NOTE | 2019-03-15 08:31 | Anesthesiology Progress Note ---
Date of Service March 15, 2019 Pt is s/p csection x 1 day.Pt had an epidural catheter that was insitu. Pt is w/o neurologic deficits;no c/o H/A's; pt is satisfied w/ anesthetic care. Physical Exam Vital Signs: Last Vital Signs Temp 36.7 C 03/15/19 07:57 Pulse 63 03/15/19 07:57 Resp 16 03/15/19 07:57 BP 108/65 03/15/19 07:57 Pulse Ox 99 03/15/19 07:57 Results & Data Medications Administered Oxytocin 20 units/ Lactated (Ringer's) 1,002 mls @ 125 mls/hr IV .Q8H1M TONY Stop: 04/13/19 21:49 Last Admin: 03/15/19 07:28 Dose: 125 mls/hr Documented by: [id number] Cosigned by: [id number] Infusion: 03/15/19 06:57 Dose: 125 mls/hr Documented by: [id number] Cosigned by: [id number] Infusion: 03/15/19 06:48 Dose: 125 mls/hr Documented by: [id number] Cosigned by: [id number] Infusion: 03/14/19 23:34 Dose: 125 mls/hr Documented by: [id number] Cosigned by: [id number] Admin: 03/14/19 22:56 Dose: 125 mls/hr Documented by: [id number] Cosigned by: [id number] Ketorolac Tromethamine (Toradol) 30 mg IV Q6H PRN PRN Reason: Breakthrough Surgical Pain Stop: 03/15/19 21:29 Last Admin: 03/15/19 05:27 Dose: 30 mg Documented by: [id number] Admin: 03/14/19 21:49 Dose: 30 mg Documented by: [id number]
[2019-03-15] MEDS: SIMETHICONE 80 MG CHEW PO SCH ×4 (08:38→20:49)
[2019-03-15] MEDS: PRENATAL VITAMIN 1 TAB PO SCH (08:39)
[2019-03-15] MEDS: DOCUSATE SODIUM 100 MG CAP PO SCH ×2 (08:39→20:49)
[2019-03-15] MEDS ORDERED: PRENAT VITS CAL MIN IRON FOLIC PO SCH (09:00)
[2019-03-15] MEDS ORDERED: BISACODYL 5 MG TABEC PO SCH ×2 (20:00)
[2019-03-15] MEDS ORDERED: DiphenhydrAMINE HCL 50 MG/ML VIAL IV PRN (21:29)
[2019-03-15] MEDS ORDERED: OXYCODONE/ACETAMINOPHEN 5mg/325mg TAB PO PRN (21:29)
[2019-03-15] MEDS ORDERED: MEPERIDINE HCL 50 MG/ML CARP IV PRN (21:29)
[2019-03-15] MEDS ORDERED: PROMETHAZINE HCL 25 MG in SODIUM CHLORIDE 0.9% 50 ML IV PRN (21:29)
[2019-03-15] MEDS ORDERED: ONDANSETRON INJ 2 MG/ML 2 ML VIAL IV PRN (21:29)
[2019-03-15] MEDS ORDERED: KETOROLAC 30 MG/ML VIAL IV PRN (21:29)
[2019-03-16] MEDS: IBUPROFEN 600 MG TAB PO PRN ×3 (01:50→11:45)
[2019-03-16 07:12] LABS: Hematocrit (blood only) 25.6 % (37-47); Hemoglobin 8.5 g/dL (12.0-16.0)
[2019-03-16] MEDS: PRENATAL VITAMIN 1 TAB PO SCH (09:15)
[2019-03-16] MEDS: DOCUSATE SODIUM 100 MG CAP PO SCH (09:15)
[2019-03-16] MEDS: SIMETHICONE 80 MG CHEW PO SCH (09:15)
--- NOTE | 2019-03-16 09:44 | Obstetrical Progress Note ---
Date of Service March 16, 2019 Assessment & Plan (1) Status post : Post day 2 from [facility]. Doing well. Meeting all post Operative goals. Stable for discharge. Subjective Ambulation: ambulating normally Voiding: no voiding problems Passing Gas:: Yes Diet Tolerance:: regular diet Lochia:: Moderate Feeding Type:: breast feeding Current Pain Level(1-10): 2 Physical Exam Musculoskeletal Incision healing normally Genitourinary OB Exam Abdomen: + fundal height Fundus: + firm and + relation to umbilicus (Below); not tender and not boggy Results & Data Vital Signs (Past 12 Hours) Vital Signs Temp Pulse Resp BP Pulse Ox 03/16/19 08:15 36.4 C L 70 16 106/59 L 98 03/15/19 23:35 36.8 C 75 16 103/51 L 96
[2019-03-16] MEDS ORDERED: BISACODYL 10 MG SUPP PR PRN ×2 (21:13→21:21)
--- NOTE | 2019-03-19 08:35 | Discharge Summary ---
Date of Service March 19, 2019 Had C/S March 14 d/c Mar 16 Admission Exam (Per Admitting) Constitutional WD/WN, vitals as above Respiratory normal respiratory effort, lungs clear to auscultation Cardiovascular RRR, no murmur, no edema Discharge Data Consultations 03/14/19 08:15 Consult Anesthesiology Stat Procedures Performed Operation Date: 03/14/19 19:35 Actual Procedures p Primary Section in LD for live female infant at [address] Priscilla Wells MD, [facility] Course (1) Status post : Post day 2 from [facility]. Doing well. Meeting all post Operative goals. Stable for discharge.
== END 2019-03-16 12:10 | disposition home or self-care (01) | DRG 788 ==
LOC: 4S1 07:39 → 4S2 03-15 00:59

== ENCOUNTER 2020-04-01 05:41 | Inpatient (IN) ==
--- NOTE | 2020-03-31 15:21 | History & Physical Report ---
Date of Service March 31, 2020 Assessment & Plan (1) Previous delivery affecting : Admission and Anticipated Discharge Date Admission Date: Repeat section. The patient was counseled to the nature of the procedure including alternatives such as labor. Risks were discussed including bleeding infection injury to bowel bladder ureter vessels and even baby. The risks of internal organ injury were discussed as being higher with prior sections. Deep Vein Thrombosis, pulmonary embolus and breakdown of the incision discussed. Deep vein thrombosis pulmonary embolus hernia and failure of the incision to heal were discussed Patient verbalized understanding of this and was given ample time to ask questions History of Present Illness Primary Care Provider: NO PCP Patient scheduled for a repeat section she hapatient scheduled for a repeat section she has 39 completed weeks advanced maternal age uncomplicated otherwise she has had one prior section before Allergies Allergy/AdvReac Type Severity Reaction Status Date / Time No Known Drug Allergies Allergy Verified 03/30/20 16:35 gluten AdvReac Intermediate stomach Verified 03/30/20 16:35 pain Home Medications Home Medications Medication Instructions Recorded Confirmed Type prenat.vits,oxana,[id number] 1 tab PO QAM 02/21/19 03/30/20 History ferrous sulfate 325 mg PO QAM 03/30/20 03/30/20 History Patient History Medical History Fertility testing hx History of in vitro fertilization hx History of varicella Hx gestational diabetes first pregancy (2018) Surgical History History of section x1 History of colonoscopy History of dilatation and curettage Missed surgical treatment of MAB 2006 D&C S/P cholecystectomy 2002 S/P LEEP of cervix 2004 S/P wisdom tooth extraction 1999 Family History (Updated 03/30/20 @ 16:42 by Adore Sanches RN) Father Hypertension Mother Hypertension Unknown No problems noted. 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
[2020-04-01] MEDS ORDERED: SODIUM CHLORIDE 0.9% 250 ML IV PRN (05:43)
[2020-04-01] MEDS ORDERED: CITRIC ACID/SODIUM CITRATE 15 ML UDC PO SCH (06:00)
[2020-04-01] MEDS ORDERED: CEFAZOLIN 2000MG 2,000 MG/15 ML SYR IV SCH (06:00)
[2020-04-01] MEDS: LACTATED RINGER'S 1,000 ML IV SCH ×2 (06:02→07:00)
[2020-04-01 06:32] LABS: Basophils # (auto) 0.01 K/uL (0-0.2); Basophils % (auto) 0.2 %; Eosinophils # (auto) 0.03 K/uL (0-0.5); Eosinophils % (auto) 0.5 %; Hematocrit (blood only) 33.7 % (37-47); Hemoglobin 11.3 g/dL (12.0-16.0); Immature Granulocytes # (auto) 0.03 K/uL (0.00-0.02); Immature Granulocytes % (auto) 0.5 %; Lymphocytes # (auto) 1.45 K/uL (1.2-3.4); Lymphocytes % (auto) 24.5 %; Mean Corpuscular Hemoglobin 29.5 pg (25-34); Mean Platelet Volume 10.1 fL (7.4-10.4); Monocytes # (auto) 0.49 K/uL (0.11-0.59); Monocytes % (auto) 8.3 %; Neutrophils # (auto) 3.92 K/uL (1.4-6.5); Platelet Count 168 K/uL (130-400); RDW Standard Deviation 47.9 fL (36.4-46.3); Red Blood Count 3.83 M/uL (4.2-5.4); White Blood Count 5.93 K/uL (4.8-10.8)
[2020-04-01 06:35] LABS: Mean Corpuscular Hgb Conc 33.5 g/dL (32-36)
[2020-04-01] MEDS ORDERED: fentaNYL citrate 100 MCG/2 ML VIAL ONE (07:09)
[2020-04-01] MEDS ORDERED: MoRPHine SULFATE PF 1 MG/ML 10 ML AMP/VIAL ONE (07:09)
--- NOTE | 2020-04-01 07:14 | Anesthesiology Consultation ---
Date of Service April 01, 2020 Assessment & Plan (1) Encounter for pre-operative examination: Chart Review Chart Review: Acceptable Risk for Surgery and Patient NOT seen in Pre Admission Testing Consults Requested none ASA ASA2 Proposed Anesthesia Anesthesia Type: Spinal Risk / Benefits Reviewed With: PT / POA / Parent / Guardian, Accepts Plan and Informed Consent Obtained History Surgery Operation Date: 04/01/20 07:30 Proposed Procedures p Section - Naila Wells MD, FACOG Height/Weight Height: 5 ft 4 in Weight: 70.307 kg Allergies Allergy/AdvReac Type Severity Reaction Status Date / Time No Known Drug Allergies Allergy NKDA Verified 04/01/20 05:50 gluten AdvReac Intermediate stomach Verified 03/30/20 16:35 pain Medications Home Medications Medication Instructions Recorded Confirmed Last Taken prenat.vits,oxana,jvl-[id number] 1 tab PO QAM 02/21/19 04/01/20 03/31/20 08:00 ferrous sulfate 325 mg PO QAM 03/30/20 04/01/20 03/31/20 08:00 Active Medications Generic Name Dose Route Start Last Admin Trade Name Freq PRN Reason Stop Dose Admin Cefazolin Sodium 2,000 mg in 15 mls @ 3.75 mls/min 04/01/20 06:00 04/01/20 07:42 Ancef 2000mg IV 04/01/20 16:00 3.75 mls/min PREOP TONY Administration Lactated Ringer's 1,000 mls @ 999 mls/hr 04/01/20 06:00 04/01/20 07:00 Lr IV 05/01/20 05:59 125 mls/hr .Q1H1M TONY Administration NPO Date Last Intake of Fluids: 03/31/20 Time Last Intake of Fluids: 23:59 Date Last Intake of Solids: 03/31/20 Time Last Intake of Solids: 23:59 Past Medical History Medical History Fertility testing hx History of in vitro fertilization hx History of varicella Hx gestational diabetes first pregancy (2018) Exercise / Class Metabolic Activity II 4-5 Yardwork/Stairs/Walk up hill Past Family History Family History Father Hypertension Mother Hypertension Unknown No problems noted. Sister Down's syndrome Other No family history of adverse response to anesthesia Past Surgical History Surgical History History of section x1 History of colonoscopy History of dilatation and curettage Missed surgical treatment of MAB 2006 D&C S/P cholecystectomy 2002 S/P LEEP of cervix 2004 S/P wisdom tooth extraction 1999 Past Anesthesia History No Hx of Anesthesia Complications History of PONV No Hx of PONV Social History Smoking Status: Never smoker Do You Dip or Chew Tobacco: No Hx Alcohol Use: No Hx Substance Use: No substance use type: does not use Review of Systems Negative for chest pain or shortness of breath. Patient denies history of abnormal bleeding or bleeding disorder. Patient denies active use of anticoagulants other than low dose aspirin. Patient denies numbness, tingling or weakness in lower extremities. Physical Exam Vital Signs Last Vital Signs Temp 37.0 C 04/01/20 07:26 Pulse 75 04/01/20 05:55 Resp 20 04/01/20 07:26 BP 116/56 L 04/01/20 05:55 Constitutional not obese (gravid) ENMT Mouth: no TMJ abnormality and oral opening not small Thyromental Distance: > or= 3.5 Finger Breadths Mallampati Class: II Neck normal visual inspection; neck extension not limited Respiratory normal respiratory effort Auscultation: lungs clear to auscultation bilaterally Cardiovascular Rate/Rhythm: regular rate and regular rhythm Heart Sounds: no murmur Neurologic moves all extremities Motor/Sensory: no sensory deficit Psychiatric Orientation: alert and oriented x 3 Testing Laboratory Results 04/01/20 06:15 Blood Type A Negative 04/01/20 06:15 Antibody Screen NEGATIVE 04/01/20 06:15
--- NOTE | 2020-04-01 07:21 | History & Physical Bridge Note ---
Date of Service April 01, 2020 History & Physical Bridge Note I have examined the patient, reviewed the History & Physical and in the interval since the performance of the History & Physical I have noted the following changes of clinical significance: no changes noted
[2020-04-01] MEDS ORDERED: ONDANSETRON INJ 2 MG/ML 2 ML VIAL ONE (08:39)
[2020-04-01] MEDS ORDERED: OXYTOCIN 10 UNITS/ML VIAL ONE ×4 (08:39→08:42)
[2020-04-01] MEDS ORDERED: KETOROLAC 30 MG/ML VIAL ONE (08:39)
[2020-04-01] MEDS ORDERED: PHENYLEPHRINE HCL 10 MG/ML VIAL ONE (08:40)
[2020-04-01] MEDS ORDERED: PHENYLEPHRINE 100MCG/ML 5ML SYR ONE (08:40)
[2020-04-01 08:43] LABS: Base Excess Cord Arterial Bld -1.1 mEq/L (-9-1.8); CO2 Cord Arterial Blood 48 mmHg (39.1-73.5); HCO3 Cord Arterial Blood 25 mmol/L (19.7-28.5); PO2 Cord Arterial Blood 24 mmHg (4.1-31.7); pH Cord Arterial Blood 7.34 (7.1-7.38)
[2020-04-01] MEDS ORDERED: DiphenhydrAMINE HCL 50 MG/ML VIAL ONE (08:45)
[2020-04-01 08:47] LABS: Base Excess Cord Venous Blood -1.1 mEq/L (-7.7-1.9); Cord Venous Blood HCO3 24 mmol/L (18.4-26.8); Cord Venous Blood PCO2 40 mmHg (30.4-57.2); Cord Venous Blood PO2 35 mmHg (14.1-43.3); Cord Venous Blood pH 7.39 (7.20-7.44)
[2020-04-01 08:48] LABS: Oxygen Sat Cord Arterial Blood < 60.0 % (<60)
[2020-04-01] MEDS ORDERED: ePHEDrine sulfate 50 MG/ML SYR ONE (08:49)
--- NOTE | 2020-04-01 08:54 | Operative Report ---
PG Post Operative Report Pre & Post Diagnosis Operation Date: 04/01/20 07:30 Pre-Op Diagnosis: 1. Repeat Section 2. 39 Completed Weeks Post-Op Diagnosis: Same I identified the patient and participated in the time-out.: Yes Procedure Operation Date: 04/01/20 07:30 Actual Procedures p Section in LD; Repeat Lower Uterine Transverse Section for the of a live girl at 0814(Bilateral) - Naila Wells MD, FACOG Surgeon Naila Wells MD, FACOG Car [employer] Installer Dr. Rodríguez Estimated Blood Loss 500 Findings Consistent with Post-Op Diagnosis Specimens Cord gases, blood Description of Procedure Regional anesthetic was given by anesthesia patient had a Garcia catheter inserted by nursing patient was prepped and draped in supine position with a leftward tilt preoperative antibiotics were given timeout performed Pickups with teeth were used to test the skin site and it was found adequate for incision scalpel used to make a Pfannenstiel incision cutting down through subcutaneous fat through the fascia fascia was then dissected laterally with the curved Swift's fascia was released superiorly and inferiorly from the rectus muscles with the curved Swift scissors, rectus muscle split peritoneal cavity entered in a superior location. Opening enlarged to allow exposure bladder ret ractor placed Metzenbaums used to dissect away the bladder flap low segment transverse incision made on the uterus. It should be noted that the lower segment was then prior to incision in fact we could see the baby moving from beneath it there was no dehiscence however exceptionally thin, with scalpel entry was done bluntly with the slice plug cutter operator's finger hysterotomy incision extended with the slice plug cutter operator's finger in the usual fashion baby was delivered then by flexion of the head and pressure from the assistant corporate controller on the abdomen mouth and then nares were suctioned baby was then delivered fully without difficulty without excessive force live vigorous cord clamped and cut cord gases obtained cord blood obtained placenta removed manually within ensured all placenta removed with a moist lap sponge uterus exteriorized IV Pitocin had been started by anesthesia and uterine tone improved. The uterus was closed in 2 layers first layer and 0 Monocryl running locked second layer 0 Monocryl nonlocked after generous irrigation and suction of the cul-de-sac and bladder flap regions hemostasis was excellent uterus was placed back in the peritoneal cavity and hemostasis was excellent rectus muscles were inspected and found to be dry fascia closed with 0 Vicryl subcutaneous fat closed with 3-0 Vicryl prior to this subcutaneous fat was irrigated skin closed with 4-0 subcuticular Monocryl incision Steri-Stripped urine was clear at the end of the procedure Estimated blood loss was 500 mL bilateral adnexa were normal and again the lower segment was thin prior to incision will discuss with the patient postoperatively I attest to the content of the Intraoperative Record and any orders documented therein. Any exceptions are noted below.
[2020-04-01] MEDS ORDERED: DiphenhydrAMINE HCL 50 MG/ML VIAL IV PRN (09:17)
[2020-04-01] MEDS ORDERED: SUPERCREAM 0.870% 15 GM JAR EXT PRN (09:17)
[2020-04-01] MEDS ORDERED: NALOXONE HCL 1 MG in SODIUM CHLORIDE 0.9% 1000ML 1,000 ML IV PRN (09:17)
[2020-04-01] MEDS ORDERED: NALOXONE HCL 0.4 MG/1 ML VIAL/CARP IV PRN (09:17)
[2020-04-01] MEDS ORDERED: SENNA 8.6 MG TAB PO PRN (09:17)
[2020-04-01] MEDS ORDERED: NALOXONE HCL 0.08 MG in SYRINGE 1.8 ML IV PRN (09:17)
[2020-04-01] MEDS ORDERED: ePHEDrine sulfate 50 MG/ML AMP IV PRN (09:17)
[2020-04-01] MEDS ORDERED: BENZOCAINE 20% AER SPR 82.5 GM CAN EXT PRN (09:17)
[2020-04-01] MEDS ORDERED: MAGNESIUM HYDROXIDE SUSP 30 ML UDC PO PRN (09:17)
[2020-04-01] MEDS ORDERED: PROMETHAZINE HCL 25 MG in SODIUM CHLORIDE 0.9% 50 ML IV PRN (09:17)
[2020-04-01] MEDS ORDERED: MoRPHine SULFATE PF 1 MG/ML 10 ML AMP/VIAL INT SPINAL ONE (09:17)
[2020-04-01] MEDS ORDERED: LACTATED RINGER'S 1,000 ML IV SCH (09:17)
[2020-04-01] MEDS ORDERED: LACTATED RINGER'S 500 ML IV PRN (09:17)
[2020-04-01] MEDS ORDERED: DIPHTHERIA/TETANUS/PERTUSSIS 0.5 ML SYR/VIAL IM ONE (09:17)
[2020-04-01] MEDS ORDERED: HYDROCORTISONE ACETATE 25 MG SUPP PR PRN (09:17)
[2020-04-01] MEDS ORDERED: ACETAMINOPHEN 1000 MG/100 ML IV IV PRN (09:17)
[2020-04-01] MEDS ORDERED: HYDROmorphone INJ 0.5 MG/0.5 ML SYR IV PRN (09:17)
[2020-04-01] MEDS ORDERED: ONDANSETRON INJ 2 MG/ML 2 ML VIAL IV PRN (09:17)
[2020-04-01] MEDS ORDERED: NO NARCOTICS OR SEDATIVES SCH (09:30)
[2020-04-01] MEDS ORDERED: SODIUM CHLORIDE 0.9% 1000ML 1,000 ML IV SCH (09:30)
[2020-04-01] MEDS ORDERED: DC INTRASPINAL MORPHINE SCH (09:30)
--- NOTE | 2020-04-01 09:41 | Anesthesiology Progress Note ---
Date of Service April 01, 2020 Anesthesia Post Procedure Vital Signs Vital Signs: Temp Pulse Resp BP Pulse Ox 04/01/20 09:35 61 100 04/01/20 09:33 61 89 L 04/01/20 09:32 62 113/61 04/01/20 09:30 65 97 04/01/20 09:25 59 L 96 04/01/20 09:21 55 L 106/54 L 04/01/20 09:20 52 L 99 04/01/20 09:15 57 L 100 04/01/20 09:13 53 L 125/56 L 04/01/20 09:10 57 L 20 100 04/01/20 09:08 57 L 82 L 04/01/20 09:05 56 L 100 04/01/20 09:03 60 91 04/01/20 09:01 58 L 109/56 L 04/01/20 09:00 36.5 C 59 L 20 100 04/01/20 07:26 37.0 C 20 04/01/20 05:55 75 116/56 L Transfer of Care Handoff Completed per policy Notes Mental Status: alert / awake / arousable and participated in evaluation Nausea / Vomiting: adequately controlled Pain: adequately controlled Airway Patency, RR, SpO2: stable & adequate BP & HR: stable & adequate Hydration State: stable & adequate Neuraxial Anesthesia: was administered and sensory block is resolving Anesthetic Complications: no major complications apparent and Pt Satisfied with anesthetic care
[2020-04-01] MEDS: OXYTOCIN 20 UNITS in LACTATED RINGER'S 1,000 ML IV SCH ×2 (12:09→20:58)
[2020-04-01] MEDS: KETOROLAC 30 MG/ML VIAL IV PRN (18:13)
[2020-04-01] MEDS: SIMETHICONE 80 MG CHEW PO SCH ×2 (18:15→21:02)
[2020-04-01] MEDS: DOCUSATE SODIUM 100 MG CAP PO SCH (21:02)
[2020-04-02] MEDS: KETOROLAC 30 MG/ML VIAL IV PRN (00:59)
[2020-04-02] MEDS ORDERED: ONDANSETRON INJ 2 MG/ML 2 ML VIAL IV PRN (03:17)
[2020-04-02] MEDS ORDERED: KETOROLAC 30 MG/ML VIAL IV PRN (03:17)
[2020-04-02] MEDS ORDERED: DiphenhydrAMINE HCL 50 MG/ML VIAL IV PRN (03:17)
[2020-04-02 05:59] LABS: Basophils # (auto) 0.01 K/uL (0-0.2); Basophils % (auto) 0.1 %; Eosinophils # (auto) 0.03 K/uL (0-0.5); Eosinophils % (auto) 0.4 %; Hematocrit (blood only) 31.4 % (37-47); Hemoglobin 10.4 g/dL (12.0-16.0); Immature Granulocytes # (auto) 0.03 K/uL (0.00-0.02); Immature Granulocytes % (auto) 0.4 %; Lymphocytes % (auto) 13.8 %; Mean Corpuscular Hemoglobin 29.2 pg (25-34); Mean Corpuscular Hgb Conc 33.1 g/dL (32-36); Mean Corpuscular Volume 88.2 fL (80-100); Mean Platelet Volume 9.7 fL (7.4-10.4); Monocytes # (auto) 0.37 K/uL (0.11-0.59); Monocytes % (auto) 5.1 %; Neutrophils # (auto) 5.79 K/uL (1.4-6.5); Neutrophils % (auto) 80.2 %; Platelet Count 133 K/uL (130-400); RDW Coefficient of Variation 14.9 % (11.5-14.5); RDW Standard Deviation 48.3 fL (36.4-46.3); Red Blood Count 3.56 M/uL (4.2-5.4); White Blood Count 7.23 K/uL (4.8-10.8)
--- NOTE | 2020-04-02 06:58 | Obstetrical Progress Note ---
Date of Service <Chas Manuel MD - Last Filed: 04/02/20 06:58> April 02, 2020 Assessment & Plan <Chas Manuel MD - Last Filed: 04/02/20 06:58> (1) Status post : - PNL: Rh pos, RI, GBS neg, COVID neg - Feels well today, POD#1. Eating well, voiding well, ambulating well. - Pain well controlled with ibuprofen 600mg Q4H PRN, oxycodone 1-2 tab PO q4h PRN - Routine postcesarean care - OOB, ambulation, diet progression as tolerated - Discharge planned for POD#3 - After discharge will have 6 week follow-up with Dr. Wells Subjective <Chas Manuel MD - Last Filed: 04/02/20 06:58> Ambulation: ambulating normally Voiding: no voiding problems Passing Gas:: Yes Diet Tolerance:: regular diet Lochia:: Small Constitutional: no fever and no chills Respiratory: no cough and no dyspnea Cardiovascular: no chest pain, no palpitations and no edema Gastrointestinal: no nausea and no vomiting Genitourinary (female): no dysuria Physical Exam <Chas Manuel MD - Last Filed: 04/02/20 06:58> Constitutional no acute distress Respiratory normal respiratory effort, lungs clear to auscultation Cardiovascular RRR, no murmur, no edema Gastrointestinal (Abdomen) Inspection/Auscultation: normal bowel sounds Percussion/Palpation: abdomen soft Incision C/D/I Results & Data ([facility]) <Chas Manuel MD - Last Filed: 04/02/20 06:58> Vital Signs (Past 12 Hours) Vital Signs Temp Pulse Pulse Resp BP BP Pulse Ox 04/02/20 04:30 37.0 C 77 18 100/70 99 04/02/20 03:30 18 98 04/02/20 02:00 18 97 04/02/20 01:00 18 99 04/02/20 00:00 36.5 C 78 18 108/68 99 04/01/20 22:30 18 98 04/01/20 21:35 16 98 04/01/20 20:30 18 98 04/01/20 19:30 36.4 C L 60 18 101/60 98 04/01/20 19:00 18 100 <Deejay Rodríguez Jr, MD, FACOG - Last Filed: 04/02/20 08:12> Co-Signing Physician Notes Resident Physician Supervision Note: I was present with Dr. Francisco during the history and exam. I discussed the case with the resident and agree with the findings and plan as documented in the note. Any exceptions or clarifications are listed here: Incision intact, doing well, begin ambulation Documented By: Deejay Rodríguez Jr, MD, FACOG
[2020-04-02] MEDS: DOCUSATE SODIUM 100 MG CAP PO SCH ×2 (08:51→21:05)
[2020-04-02] MEDS: FERROUS SULFATE 325 MG TAB PO SCH (08:51)
[2020-04-02] MEDS: PRENATAL VITAMIN 1 TAB PO SCH (08:51)
[2020-04-02] MEDS: OXYCODONE/ACETAMINOPHEN 5mg/325mg TAB PO PRN ×4 (08:52→21:05)
[2020-04-02] MEDS: SIMETHICONE 80 MG CHEW PO SCH ×4 (08:52→21:05)
[2020-04-02] MEDS: IBUPROFEN 600 MG TAB PO PRN ×3 (12:55→21:05)
[2020-04-02] MEDS ORDERED: bisacodyL 5 MG TABEC PO SCH (20:00)
[2020-04-03] MEDS: OXYCODONE/ACETAMINOPHEN 5mg/325mg TAB PO PRN ×2 (06:07→11:25)
[2020-04-03] MEDS: IBUPROFEN 600 MG TAB PO PRN ×2 (06:07→11:24)
--- NOTE | 2020-04-03 06:15 | Obstetrical Progress Note ---
Date of Service <Chas Manuel MD - Last Filed: 04/03/20 06:15> April 03, 2020 Assessment & Plan <Chas Manuel MD - Last Filed: 04/03/20 06:15> (1) Status post : - Feels well today, POD#2. Eating well, voiding well without machuca, ambulating well. Passing gas; has not had a BM yet - Rh pos, RI, GBS neg, COVID neg - Pain well controlled with ibuprofen 600mg Q4H PRN, oxycodone 1-2 tab PO q4h PRN - Routine postcesarean care - OOB, ambulation, diet progression as tolerated - Discharge planned for POD#3 - After discharge will have 6 week follow-up with Dr. Wells Subjective <Chas Manuel MD - Last Filed: 04/03/20 06:15> Ambulation: ambulating normally Voiding: no voiding problems Passing Gas:: Yes Diet Tolerance:: regular diet Lochia:: Small Feeding Type:: breast feeding Current Pain Level(1-10): 4 Constitutional: no fever and no chills Respiratory: no cough and no dyspnea Cardiovascular: no chest pain, no palpitations and no edema Gastrointestinal: no nausea and no vomiting Genitourinary (female): no dysuria Physical Exam <Chas Manuel MD - Last Filed: 04/03/20 06:15> Constitutional no acute distress Respiratory normal respiratory effort, lungs clear to auscultation Cardiovascular RRR, no murmur, no edema Gastrointestinal (Abdomen) Inspection/Auscultation: normal bowel sounds Percussion/Palpation: abdomen soft incision C/D/I with steri strips Musculoskeletal no calf tenderness, negative Anayeli's sign bilaterally Results & Data ([facility]) <Chas Manuel MD - Last Filed: 04/03/20 06:15> Vital Signs (Past 12 Hours) Vital Signs Temp Pulse Pulse Resp BP Pulse Ox 04/03/20 00:40 36.5 C 71 18 101/59 L 04/02/20 20:00 36.5 C 83 18 109/61 97 <Ninoska Almonte MD - Last Filed: 04/03/20 06:54> Co-Signing Physician Notes I have reviewed the resident's note and examined the patient myself, and agree with the note above. Resident Activity Tracking <Chas Manuel MD - Last Filed: 04/03/20 06:15> Resident Involvement: Resident Care Provided Care Provided: OB Delivery
[2020-04-03 06:52] LABS: Hematocrit (blood only) 30.6 % (37-47); Hemoglobin 10.1 g/dL (12.0-16.0)
[2020-04-03] MEDS ORDERED: bisacodyL 10 MG SUPP PR PRN (08:43)
[2020-04-03] MEDS: SIMETHICONE 80 MG CHEW PO SCH (08:47)
[2020-04-03] MEDS: FERROUS SULFATE 325 MG TAB PO SCH (08:47)
[2020-04-03] MEDS: PRENATAL VITAMIN 1 TAB PO SCH (08:47)
[2020-04-03] MEDS: DOCUSATE SODIUM 100 MG CAP PO SCH (08:47)
--- NOTE | 2020-04-07 17:00 | Discharge Summary ---
Date of Service April 07, 2020 Admission HPI Per Admitting Provider Patient scheduled for a repeat section she hapatient scheduled for a repeat section she has 39 completed weeks advanced maternal age uncomplicated otherwise she has had one prior section before Admission Exam (Per Admitting) Constitutional WD/WN, vitals as above Respiratory normal respiratory effort, lungs clear to auscultation Cardiovascular RRR, no murmur, no edema Gastrointestinal (Abdomen) normal bowel sounds, soft, nontender, no hepatosplenomegaly Discharge Data Consultations 04/01/20 05:40 Consult Anesthesiology Stat Procedures Performed Operation Date: 04/01/20 07:30 Actual Procedures p Section in LD; Repeat Lower Uterine Transverse Section for the of a live girl at 0814(Bilateral) - Naila Wells MD, FACOG Hospital Course (1) Status post : On postoperai'm postoperative day number two after section the patient was doing well ambulating well tolerating oral diet she had no extremity pain her incision is clean dry and intact it was just her home with instructions and appropriate pain medicationI'm Coding Level of Care Code None Diagnoses Status post [id number]
== END 2020-04-03 12:40 | disposition home or self-care (01) | DRG 788 ==
LOC: 4S1 05:41 → EDSTATUS 07:30 → 4S2 16:09